=== PATIENT | female | born 1985 ===

== ENCOUNTER 2019-06-21 10:54 | Outpatient (CLI) | payer OTHER | END 2019-06-21 10:59 | disposition home or self-care (01) | LOC: SONOGRAMA 10:54 | DX: Z12.31 Encounter for screening mammogram for malignant neoplasm of breast (principal); Z87.898 Personal history of other specified conditions; Z80.3 Family history of malignant neoplasm of breast; N63.10 Unspecified lump in the right breast, unspecified quadrant; N63.20 Unspecified lump in the left breast, unspecified quadrant ==

== ENCOUNTER → 2019-06-21 | Outpatient (CLI) | payer OTHER ==
[~2019-06-21] MED LIST: SYNTHROID75 MCG
== END | disposition home or self-care (01) ==
LOC: LAB SALUS → EDBD → LAB SALUS 11:01
DX: Z00.8 Encounter for other general examination (principal); Z11.59 Encounter for screening for other viral diseases; Z13.1 Encounter for screening for diabetes mellitus; Z11.4 Encounter for screening for human immunodeficiency virus [HIV]; Z72.51 High risk heterosexual behavior; Z11.3 Encounter for screening for infections with a predominantly sexual mode of transmission